=== PATIENT | male | born 1960 | race Caucasian/White ===

== ENCOUNTER 2016-11-11 16:56 | Emergency (ER) | payer OTHER ==
[~2016-11-11] VITALS: Ht 157.5 cm; Wt 78.0 kg
[~2016-11-11 16:56] MED LIST: ALLO300T46 PO; ATOR40TA68 PO; CLIN300C2 PO; GLIM4TAB55 PO; LISI40TA9 PO; NORC 5-325 PO; OMEP20CA9 PO
[2016-11-11 17:07] VITALS: Ht 157.5 cm; Wt 78.0 kg
[2016-11-11] MEDS ORDERED: KETOROLAC 30 MG INJ IV STA (18:34)
[2016-11-11] MEDS ORDERED: CLIN-73 PO (18:46)
--- NOTE | 2016-11-11 18:46 | ERD ---
ER Documentation Chief Complaint Date/Time DATE: 11/11/16 TIME: 18:40 Chief Complaint LEFT BIG TOE PAIN/REDNESS HPI 56-year-old male presents to emergency department for complaints of left foot redness that started yesterday. Patient has a blister on the left big toe, noted redness and swelling today. Patient describes the pain in affected areas throbbing pain, 4/10 scale, as was upon touching the area. Patient denies any fever or chills. Patient is diabetic and is worried about it. Patient has any numbness or tingling. ROS All systems reviewed and are negative except as per history of present illness. Medications Home Meds Active Scripts Clindamycin Hcl* (Clindamycin Hcl*) 300 Mg Capsule, 300 MG PO TID for 10 Days, CAP Prov:LAURYN CRUZ [employer] 11/11/16 Reported Medications Omeprazole* (Prilosec*) 20 Mg Capsule.dr, 20 MG PO DAILY, CAP 09/04/13 Lisinopril* (Lisinopril*) 40 Mg Tablet, 40 MG PO DAILY, TAB 09/04/13 Hydrocodone Bit-Acetaminophen* (Byers*) 5-325 Tablet, 1 TAB PO Q6 Y for PAIN LEVEL 4-6, TAB 09/04/13 Glimepiride* (Amaryl*) 4 Mg Tablet, 4 MG PO WITH BREAKFAST, TAB 09/04/13 Clindamycin Hcl* (Cleocin*) 300 Mg Cap, 300 MG PO TID, CAP 09/04/13 Atorvastatin* (Atorvastatin*) 40 Mg Tablet, 40 MG PO HS, TAB 09/04/13 Allopurinol* (Zyloprim*) 300 Mg Tablet, 300 MG PO DAILY, TAB 09/04/13 Allergies Allergies: Coded Allergies: No Known Allergy (Unverified , 09/04/13) PMhx/Soc History of Surgery: Yes (eye laser surgery) Anesthesia Reaction: No Hx Neurological Disorder: No Hx Respiratory Disorders: No Hx Cardiac Disorders: No Hx Psychiatric Problems: No Hx Miscellaneous Medical Probl: No Hx Alcohol Use: Yes (occ drinking only ) Hx Substance Use: No Hx Tobacco Use: No FmHx Family History: No coronary disease, No diabetes, No other Physical Exam Vitals Vital Signs Date Time Temp Pulse Resp B/P Pulse Ox O2 Delivery O2 Flow Rate FiO2 11/11/16 20:28 89 16 148/89 98 Room Air 11/11/16 17:07 97.8 110 18 124/85 99 Physical Exam GENERAL: The patient is well developed and appropriate for usual state of health, in no apparent distress. CHEST: Clear to auscultation bilaterally. There are no rales, wheezes or rhonchi. HEART: Regular rate and rhythm. No murmurs, clicks, rubs or gallops. No S3 or S4. ABDOMEN: Soft, nontender and nondistended. Good bowel sounds. No rebound or guarding. No gross peritonitis. No gross organomegaly or masses. No Livingston sign or McBurney point tenderness. BACK: No midline or flank tenderness. EXTREMITIES: Erythema in the medial aspect of the left foot, with redness noted on the left big toe, noted a blister on the plantar aspect of the left big toe, 0.5 cm. No fluctuance noted. Equal pulses bilaterally. Full range of motion of other joints of the body. Grossly neurovascularly intact. NEURO: Alert and oriented. Cranial nerves 2-12 intact. Motor strength in all 4 extremities with 5/5 strength. Sensation grossly intact. Normal speech and gait. SKIN: There is no apparent rash or petechia. The skin is warm and dry. HEMATOLOGIC AND LYMPHATIC: There is no evidence of excessive bruising or lymphedema. No gross cervical, axillary, or inguinal lymphadenopathy. Results 24 hrs Current Medications Medications (Trade) Dose Ordered Sig/Nayla Route PRN Reason Start Time Stop Time Status Last Admin Dose Admin Clindamycin HCl/ Dextrose 50 ml @ 50 mls/hr ONCE IVPB 11/11/16 19:00 11/11/16 19:59 DC 11/11/16 19:26 Sodium Chloride (NS) 1,000 ml @ 1,000 mls/hr Q1H ONCE IV 11/11/16 19:00 11/11/16 19:59 DC 11/11/16 19:26 Ketorolac Tromethamine (Toradol) 30 mg ONCE STAT IV 11/11/16 18:34 11/11/16 18:35 DC 11/11/16 19:26 Normal saline IV bolus was given here in emergency department for rehydration, patient tolerated IV fluids. Patient was given medication for pain here in emergency department, after treatment, patient verbalized feeling much better. Patient's pain is improved. Clindamycin was given here in emergency department for treatment for cellulitis tolerating medication well. Procedures/MDM Medical decision making: Patient symptoms most likely is insistent with cellulitis. At present, no symptoms of any abscess. No symptoms of any sepsis at this time. No symptoms of any neurovascular compromise. Patient not febrile. Patient appears well and hemodynamically stable. Prescription was given for clindamycin, was also given IV clindamycin here in emergency department, is advised to follow-up 28 hours for reevaluation of symptoms. Strict return to ER precautions for any worsening symptoms. Disposition: Home. Stable Departure Diagnosis: Primary Impression: Cellulitis Site of cellulitis: extremity Site of cellulitis of extremity: lower extremity Laterality: left Qualified Code: L03.116 - Cellulitis of left lower extremity Condition: Stable Patient Instructions: Cellulitis LAURYN CRUZ NP Nov 11, 2016 18:46
[2016-11-11] MEDS ORDERED: CLINDAMYCIN 600 MG/D5W (PMX) 50 ML IVPB SCH (19:00)
[2016-11-11] MEDS ORDERED: SOD CHLORIDE 0.9% 1,000 ML IV ONE (19:00)
[2016-11-11 20:28] VITALS: BP 148/89; PULSE 89; RESP 16
== END 2016-11-11 20:32 | disposition home or self-care (01) ==
LOC: FTE 16:56
DX: L03.116 Cellulitis of left lower limb (principal)
CPT/HCPCS: 96374; 96375; J1885; J7030; Z7502; Z7610